=== PATIENT | female | born 1935 | race Caucasian/White ===

== ENCOUNTER → 2018-02-26 | Outpatient (CLI) | payer MEDICARE, OTHER | END | disposition home or self-care (01) | LOC: ROC 02-20 11:11 | PROVIDERS: ATTEND Radiology Radiation Oncology | DX: C25.0 Malignant neoplasm of head of pancreas (principal) | CPT/HCPCS: G0463 ==

== ENCOUNTER → 2018-03-06 | Outpatient (CLI) | payer MEDICARE, OTHER ==
[~2018-03-06] MED LIST: OMNIPAQUE 350 MG/ML, 100ML BOTTLE ONE
== END | disposition home or self-care (01) ==
LOC: CFH 11:40
PROVIDERS: ATTEND Radiology Radiation Oncology
DX: C78.7 Secondary malignant neoplasm of liver and intrahepatic bile duct (principal); C64.1 Malignant neoplasm of right kidney, except renal pelvis; C25.0 Malignant neoplasm of head of pancreas; J90 Pleural effusion, not elsewhere classified; J98.11 Atelectasis; R91.8 Other nonspecific abnormal finding of lung field; R18.8 Other ascites; R59.0 Localized enlarged lymph nodes
CPT/HCPCS: 74170; Q9967